=== PATIENT | male | born 1945 | race African-American/Black ===

== ENCOUNTER 2017-09-18 13:15 | Emergency (ER) | payer OTHER ==
[~2017-09-18] VITALS: Ht 167.6 cm; Wt 78.5 kg
[~2017-09-18 13:15] MED LIST: AML5T PO; ASPI-231; ATOR40TA52 PO; CAR125T; CAR125T PO; CLON0.1T; CLON0.1T PO; FURO40TA4; FURO40TA4 PO; GABA-494 PO; GLIP-115 PO; HYDR10TA26 PO; METF-370 PO; METF-372; OMEP20CA74 OR; OXYB10TA13; POTA-167; POTA20TA53 PO; QUET300T14; QUET300T23 PO; RAMI10CA38; SIMV10TA84
[2017-09-18 13:28] VITALS: BP 154/64
[2017-09-18 14:13] LABS: Basophils # (auto) 0 uL; Basophils % (auto) 0.5 % (0.0-2.0); Eosinophils # (auto) 0 uL; Eosinophils % (auto) 0.3 % (0.0-7.0); Hematocrit 33.6 % (41.0-53.0); Hemoglobin 10.8 g/dL (13.5-17.5); Lymphocytes # (auto) 0.8 uL; Lymphocytes % (auto) 12.2 % (10.0-50.0); Mean Corpuscular Hemoglobin 27.6 pg (28.0-32.0); Mean Corpuscular Hgb Conc. 32.1 g/dL (32.0-36.0); Mean Corpuscular Volume 85.9 fL (80.0-100.0); Mean Platelet Volume 7.4 fL (6.9-10.8); Monocytes # (auto) 0.6 uL; Monocytes % (auto) 8.4 % (0.0-12.0); Neutrophils # (auto) 5.4 uL; Neutrophils % (auto) 78.6 % (37.0-80.0); Platelet Count (auto) 277 10^3/uL (140-450); Red Cell Distribution Width 16.2 % (11.8-14.3); White Blood Cell 6.8 10^3/uL (4.4-10.8)
[2017-09-18 15:06] LABS: Albumin 3.7 g/dL (3.4-5.0); Alkaline Phosphatase 111 U/L (45-117); Anion Gap 11 (5-15); Aspartate Aminotransferase 35 U/L (15-37); BUN/Creatinine Ratio 20.1; Bilirubin, Total 0.3 mg/dL (0.2-1.0); Blood Urea Nitrogen 42 mg/dL (7-18); Calcium 8.1 mg/dL (8.5-10.1); Carbon Dioxide 22 mmol/L (21-32); Chloride 106 mmol/L (98-107); GFR African American 40 mL/min; GFR Non-African American 33 mL/min; Glucose 289 mg/dL (74-106); Potassium 5.1 mmol/L (3.5-5.1); Sodium 139 mmol/L (136-145); Total Protein 7.7 g/dL (6.4-8.2)
[2017-09-18 17:30] LABS: Urine Bilirubin Negative (Negative); Urine Blood Negative /uL (Negative); Urine Color Yellow (Yellow); Urine Glucose TRACE mg/dL (Normal); Urine Ketone Negative (Negative); Urine Nitrite Negative (Negative); Urine RBC 1 /hpf (0 - 3); Urine Squamous Epithelial Cell FEW /hpf (<5); Urine Urobilinogen Normal (Negative)
[2017-09-18] MEDS ORDERED: PANTOPRAZOLE 40 MG/10 ML VIAL IV STA (17:48)
[2017-09-18] MEDS ORDERED: SODIUM CHLORIDE 0.9% 1,000 ML IV ONE (17:48)
[2017-09-18] MEDS ORDERED: ONDANSETRON HCL 4 MG/2 ML VIAL IV ONE (18:00)
[2017-09-18] MEDS ORDERED: SODIUM CHLORIDE 0.9% 1,000 ML IV SCH (19:19)
[2017-09-18] MEDS ORDERED: DOCUSATE SOD 100 MG CAP PO PRN (19:30)
[2017-09-18] MEDS ORDERED: DEXTROSE (50%) 50ML SYRG IV PRN (19:30)
[2017-09-18] MEDS ORDERED: MORPHINE SULF INJ 2 MG/ML SYRINGE 1ML IV PRN ×2 (19:30)
[2017-09-18] MEDS ORDERED: ONDANSETRON HCL 4 MG/2 ML VIAL IV PRN (19:30)
[2017-09-18] MEDS ORDERED: HYDROcodone-ACET 5/325MG TAB PO PRN (19:30)
[2017-09-18] MEDS ORDERED: METOCLOPRAMIDE HCL 5MG/ml INJ 2ml VIAL IV PRN (19:30)
[2017-09-18] MEDS ORDERED: ACETAMINOPHEN 325 MG TAB PO PRN (19:30)
[2017-09-18] MEDS ORDERED: NITROGLYCERIN 0.4 MG SL TAB SL PRN (19:30)
[2017-09-18] MEDS ORDERED: ONDA4TAB8 SL ×2 (19:37→19:39)
[2017-09-18 19:49] LABS: Magnesium 2.4 mg/dL (1.6-2.6)
[2017-09-18] MEDS ORDERED: metFORMIN HYDROCHLORIDE 500 MG TAB PO SCH (20:00)
[2017-09-18] MEDS ORDERED: CARVEDILOL 12.5 MG TAB PO SCH (22:00)
[2017-09-18] MEDS ORDERED: ACCU-CHEK COMFORT CURVE STRIP VI SCH (22:00)
[2017-09-18] MEDS ORDERED: QUEtiapine FUMARATE 100 MG TAB PO ONE (22:00)
[2017-09-18] MEDS ORDERED: InsuLIN REG 1unit/0.01ml Soln (100units/ml) SC SCH (22:00)
[2017-09-18] MEDS ORDERED: GABAPENTIN 100 MG CAP PO SCH (22:00)
[2017-09-19] MEDS ORDERED: InsuLIN REG 1unit/0.01ml Soln (100units/ml) SC SCH (07:00)
== END 2017-09-18 19:46 | disposition home or self-care (01) ==
LOC: ER 13:15
DX: E11.65 Type 2 diabetes mellitus with hyperglycemia (principal); E11.22 Type 2 diabetes mellitus with diabetic chronic kidney disease; I12.9 Hypertensive chronic kidney disease with stage 1 through stage 4 chronic kidney disease, or unspecified chronic kidney disease; N18.3 Chronic kidney disease, stage 3 (moderate); R42 Dizziness and giddiness; I25.2 Old myocardial infarction; Z86.73 Personal history of transient ischemic attack (TIA), and cerebral infarction without residual deficits; Z79.82 Long term (current) use of aspirin; Z85.46 Personal history of malignant neoplasm of prostate
CPT/HCPCS: 36415; 71020; 74176; 80053; 81001; 83690; 83735; 84484; 85025; 93005; 94761

== ENCOUNTER 2017-09-23 11:28 | Inpatient (IN) | payer OTHER ==
[~2017-09-23] VITALS: Ht 170.2 cm; Wt 79.2 kg
[~2017-09-23 11:28] MED LIST changes: +[UNRECOGNIZED DRUG - CODE] SL
[2017-09-23 12:14] LABS: Basophils # (auto) 0 uL; Basophils % (auto) 0.7 % (0.0-2.0); Eosinophils # (auto) 0.1 uL; Eosinophils % (auto) 1.7 % (0.0-7.0); Hematocrit 30.4 % (41.0-53.0); Hemoglobin 9.7 g/dL (13.5-17.5); Lymphocytes # (auto) 1.4 uL; Lymphocytes % (auto) 23.6 % (10.0-50.0); Mean Corpuscular Hemoglobin 27.2 pg (28.0-32.0); Mean Corpuscular Hgb Conc. 31.9 g/dL (32.0-36.0); Mean Corpuscular Volume 85.4 fL (80.0-100.0); Mean Platelet Volume 7.3 fL (6.9-10.8); Monocytes # (auto) 0.7 uL; Monocytes % (auto) 12.8 % (0.0-12.0); Neutrophils # (auto) 3.6 uL; Neutrophils % (auto) 61.2 % (37.0-80.0); Nucleated Red Blood Cells % 0.2 %; Platelet Count (auto) 247 10^3/uL (140-450); Red Cell Distribution Width 16.4 % (11.8-14.3); White Blood Cell 5.8 10^3/uL (4.4-10.8)
[2017-09-23 12:46] LABS: Albumin 3.4 g/dL (3.4-5.0); BUN/Creatinine Ratio 15.6; Bilirubin, Total 0.6 mg/dL (0.2-1.0); Calcium 8.1 mg/dL (8.5-10.1); Magnesium 2.7 mg/dL (1.6-2.6); Potassium 4.6 mmol/L (3.5-5.1)
[2017-09-23] MEDS ORDERED: DEXTROSE (50%) 50ML SYRG IV ONE ×2 (15:45→17:30)
[2017-09-23] MEDS ORDERED: DEXTROSE 50% SYRINGE 50 ML IV ONE (17:14)
[2017-09-23] MEDS: SODIUM CHLORIDE 0.9% 1,000 ML IV SCH ×2 (18:49→20:26)
[2017-09-23] MEDS ORDERED: PROMETHAZINE HCL 25 MG/ML 1ML IV PRN (19:00)
[2017-09-23] MEDS ORDERED: TEMAZEPAM 15 MG CAP PO PRN (19:00)
[2017-09-23] MEDS ORDERED: MORPHINE SULF INJ 2 MG/ML SYRINGE 1ML IV PRN ×2 (19:00)
[2017-09-23] MEDS ORDERED: NITROGLYCERIN 0.4 MG SL TAB SL PRN (19:00)
[2017-09-23] MEDS ORDERED: LORazepam 0.5 MG TAB PO PRN (19:00)
[2017-09-23] MEDS ORDERED: LACTULOSE 20Gm/30ML SOLN PO PRN (19:00)
[2017-09-23] MEDS ORDERED: ACETAMINOPHEN 500 MG TAB PO PRN (19:00)
[2017-09-23] MEDS ORDERED: DEXTROSE (50%) 50ML SYRG IV PRN (19:00)
[2017-09-23 20:24] LABS: Temperature: 21.9 C (20.0-25.0)
[2017-09-23] MEDS ORDERED: LORazepam 2MG/ML-1ML VIAL IV PRN (21:00)
[2017-09-23 21:20] VITALS: BP 151/84
[2017-09-23 21:55] VITALS: BP 151/84
[2017-09-23] MEDS: cloNIDine HCL 0.1 MG TAB PO SCH (22:00)
[2017-09-23] MEDS: ACCU-CHEK COMFORT CURVE STRIP VI SCH (22:00)
[2017-09-23] MEDS: CARVEDILOL 12.5 MG TAB PO SCH (22:39)
[2017-09-23] MEDS: hydrALAZINE HCL 10 MG TAB PO SCH (22:40)
[2017-09-23] MEDS: InsuLIN REG 1unit/0.01ml Soln (100units/ml) SC SCH (22:41)
[2017-09-23] MEDS: HYDROcodone-ACET 5/325MG TAB PO PRN (22:46)
[2017-09-23] MEDS: QUEtiapine FUMARATE 100 MG TAB PO SCH (22:47)
[2017-09-24 05:39] VITALS: BP 115/59
[2017-09-24] MEDS: hydrALAZINE HCL 10 MG TAB PO SCH ×4 (06:00→22:00)
[2017-09-24] MEDS: cloNIDine HCL 0.1 MG TAB PO SCH ×3 (06:00→22:00)
[2017-09-24 06:20] LABS: Basophils # (auto) 0 uL; Basophils % (auto) 0.5 % (0.0-2.0); Eosinophils # (auto) 0.1 uL; Eosinophils % (auto) 1.8 % (0.0-7.0); Hematocrit 27.6 % (41.0-53.0); Hemoglobin 8.9 g/dL (13.5-17.5); Lymphocytes # (auto) 1.6 uL; Lymphocytes % (auto) 27.9 % (10.0-50.0); Mean Corpuscular Hemoglobin 27.7 pg (28.0-32.0); Mean Corpuscular Hgb Conc. 32.4 g/dL (32.0-36.0); Mean Corpuscular Volume 85.7 fL (80.0-100.0); Monocytes # (auto) 0.7 uL; Monocytes % (auto) 12.2 % (0.0-12.0); Neutrophils # (auto) 3.3 uL; Neutrophils % (auto) 57.6 % (37.0-80.0); Platelet Count (auto) 215 10^3/uL (140-450); White Blood Cell 5.7 10^3/uL (4.4-10.8)
[2017-09-24 06:44] LABS: Albumin 2.8 g/dL (3.4-5.0); BUN/Creatinine Ratio 17.6; Bilirubin, Total 0.2 mg/dL (0.2-1.0); Calcium 7.9 mg/dL (8.5-10.1); Potassium 4.4 mmol/L (3.5-5.1); Total Protein 5.9 g/dL (6.4-8.2)
[2017-09-24] MEDS: InsuLIN REG 1unit/0.01ml Soln (100units/ml) SC SCH ×4 (06:45→22:00)
[2017-09-24] MEDS: ACCU-CHEK COMFORT CURVE STRIP VI SCH ×4 (06:45→22:25)
[2017-09-24] MEDS ORDERED: CYANOCOBALAMIN (B-12) 1000 MCG/1 ML VIAL IM ONE (08:30)
[2017-09-24 09:00] VITALS: BP 142/70
[2017-09-24] MEDS: SODIUM CHLORIDE 0.9% 1,000 ML IV SCH ×2 (09:00→19:49)
[2017-09-24] MEDS: HYDROcodone-ACET 5/325MG TAB PO PRN ×2 (09:14→20:01)
[2017-09-24] MEDS ORDERED: ENOXAPARIN SOD 30 MG/0.3 ML SYRINGE SC SCH (10:00)
[2017-09-24] MEDS: ASPirin 81 mg TAB PO SCH (10:12)
[2017-09-24] MEDS: CARVEDILOL 12.5 MG TAB PO SCH ×2 (10:13→22:25)
[2017-09-24] MEDS: amLODIPine BESYLATE 5 MG TAB PO SCH (10:14)
[2017-09-24] MEDS: FUROSEMIDE 40 MG TAB PO SCH (10:14)
[2017-09-24] MEDS: PANTOPRAZOLE 40 MG TAB PO SCH (10:14)
[2017-09-24] MEDS: ENALAPRIL MALEATE 2.5 MG TAB PO SCH (10:14)
[2017-09-24] MEDS ORDERED: GADOPENTETATE DIMEGLUMINE (10MMOL/20 ML) VIAL IV ONE (11:13)
[2017-09-24 13:00] VITALS: BP 125/63
[2017-09-24] MEDS: CLINDAMYCIN 600MG IV 50 ML IV SCH ×2 (15:35→22:24)
[2017-09-24 17:00] VITALS: BP 113/52
[2017-09-24 22:00] VITALS: BP 106/56
[2017-09-24] MEDS: QUEtiapine FUMARATE 100 MG TAB PO SCH (22:25)
[2017-09-24] MEDS: ATORVASTATIN 20 MG TAB PO SCH (22:25)
[2017-09-25 04:22] LABS: Urine Bilirubin Negative (Negative); Urine Blood Negative /uL (Negative); Urine Color Yellow (Yellow); Urine Glucose Normal (Normal); Urine Ketone Negative (Negative); Urine Nitrite Negative (Negative); Urine RBC <1 /hpf (0 - 3); Urine Squamous Epithelial Cell FEW /hpf (<5); Urine Urobilinogen Normal (Negative)
[2017-09-25 05:00] VITALS: BP 121/50
[2017-09-25] MEDS: hydrALAZINE HCL 10 MG TAB PO SCH ×4 (06:00→21:58)
[2017-09-25] MEDS: cloNIDine HCL 0.1 MG TAB PO SCH ×3 (06:00→21:59)
[2017-09-25] MEDS: HYDROcodone-ACET 5/325MG TAB PO PRN (06:00)
[2017-09-25 06:10] LABS: Basophils # (auto) 0.1 uL; Basophils % (auto) 0.8 % (0.0-2.0); Eosinophils # (auto) 0.1 uL; Eosinophils % (auto) 2.1 % (0.0-7.0); Hematocrit 26.5 % (41.0-53.0); Hemoglobin 8.6 g/dL (13.5-17.5); Lymphocytes # (auto) 1.8 uL; Lymphocytes % (auto) 25.2 % (10.0-50.0); Mean Corpuscular Hemoglobin 27.7 pg (28.0-32.0); Mean Corpuscular Hgb Conc. 32.5 g/dL (32.0-36.0); Mean Corpuscular Volume 85.2 fL (80.0-100.0); Mean Platelet Volume 7.5 fL (6.9-10.8); Monocytes # (auto) 0.8 uL; Monocytes % (auto) 11.3 % (0.0-12.0); Neutrophils # (auto) 4.3 uL; Neutrophils % (auto) 60.6 % (37.0-80.0); Platelet Count (auto) 209 10^3/uL (140-450); Red Cell Distribution Width 16.4 % (11.8-14.3); White Blood Cell 7.1 10^3/uL (4.4-10.8)
[2017-09-25 06:26] LABS: Prothrombin Time 10.9 sec (9.37-12.3)
[2017-09-25] MEDS: CLINDAMYCIN 600MG IV 50 ML IV SCH ×3 (06:26→21:56)
[2017-09-25] MEDS: ACCU-CHEK COMFORT CURVE STRIP VI SCH ×4 (06:56→21:59)
[2017-09-25] MEDS: InsuLIN REG 1unit/0.01ml Soln (100units/ml) SC SCH ×4 (06:56→22:00)
[2017-09-25 08:00] VITALS: BP 133/68
[2017-09-25] MEDS: SODIUM CHLORIDE 0.9% 1,000 ML IV SCH (08:19)
[2017-09-25 09:00] VITALS: BP 133/68
[2017-09-25] MEDS: cefTRIAXone 1GM/10ml IVPUSH 10 ML IV SCH (09:00)
[2017-09-25] MEDS ORDERED: VANCOMYCIN 1GM/250ML 250 ML IV ONE (09:15)
[2017-09-25] MEDS ORDERED: VANCOMYCIN HCL 1000 MG VL IR ONE (09:15)
[2017-09-25] MEDS ORDERED: LIDOCAINE 2%HCL (LOCAL ANESTH.) INJ 20ML MDV ONE (09:15)
[2017-09-25] MEDS: FUROSEMIDE 40 MG TAB PO SCH (10:00)
[2017-09-25] MEDS: CYANOCOBALAMIN 500 MCG TAB PO SCH (10:00)
[2017-09-25] MEDS: CARVEDILOL 12.5 MG TAB PO SCH ×2 (10:00→21:58)
[2017-09-25] MEDS: ENOXAPARIN SOD 30 MG/0.3 ML SYRINGE SC SCH (10:00)
[2017-09-25] MEDS: ENALAPRIL MALEATE 2.5 MG TAB PO SCH (10:00)
[2017-09-25] MEDS: ASPirin 81 mg TAB PO SCH (10:00)
[2017-09-25] MEDS: amLODIPine BESYLATE 5 MG TAB PO SCH (10:00)
[2017-09-25] MEDS ORDERED: fentaNYL CITRATE 100 MCG/2 ML VL ONE (10:00)
[2017-09-25] MEDS: PANTOPRAZOLE 40 MG TAB PO SCH (10:00)
[2017-09-25] MEDS ORDERED: ENOXAPARIN SOD 40 MG/0.4 ML SYRINGE SC SCH (10:00)
[2017-09-25] MEDS ORDERED: MIDAZOLAM HCL 1MG/1ML-2 ML VIAL ONE ×2 (10:01→10:20)
[2017-09-25] MEDS ORDERED: FUROSEMIDE 20 MG/2 ML VIAL ONE (11:24)
[2017-09-25] MEDS ORDERED: NITROGLYCERIN 0.4 MG SL TAB SL PRN (11:30)
[2017-09-25] MEDS ORDERED: HYDROcodone-ACET 5/325MG TAB PO PRN (11:30)
[2017-09-25] MEDS ORDERED: MORPHINE SULFATE 4 MG/ML SYRG IV PRN ×3 (11:30→11:45)
[2017-09-25] MEDS ORDERED: ACETAMINOPHEN 325 MG TAB PO PRN (11:30)
[2017-09-25 13:00] VITALS: BP 131/63
[2017-09-25 17:00] VITALS: BP 150/72
[2017-09-25] MEDS: ATORVASTATIN 20 MG TAB PO SCH (21:57)
[2017-09-25] MEDS: QUEtiapine FUMARATE 100 MG TAB PO SCH (21:57)
[2017-09-25 22:00] VITALS: BP 123/76
[2017-09-26 05:00] VITALS: BP 114/65
[2017-09-26] MEDS: CLINDAMYCIN 600MG IV 50 ML IV SCH ×2 (05:50→15:37)
[2017-09-26] MEDS: hydrALAZINE HCL 10 MG TAB PO SCH ×3 (05:50→18:29)
[2017-09-26] MEDS: cloNIDine HCL 0.1 MG TAB PO SCH ×2 (05:51→14:00)
[2017-09-26 05:58] LABS: Basophils # (auto) 0 uL; Basophils % (auto) 0.2 % (0.0-2.0); Eosinophils # (auto) 0.2 uL; Eosinophils % (auto) 2.4 % (0.0-7.0); Hematocrit 26.1 % (41.0-53.0); Hemoglobin 8.6 g/dL (13.5-17.5); Lymphocytes # (auto) 1.6 uL; Lymphocytes % (auto) 25.8 % (10.0-50.0); Mean Corpuscular Hemoglobin 28.1 pg (28.0-32.0); Mean Corpuscular Hgb Conc. 32.9 g/dL (32.0-36.0); Mean Corpuscular Volume 85.4 fL (80.0-100.0); Mean Platelet Volume 8.2 fL (6.9-10.8); Monocytes # (auto) 0.6 uL; Monocytes % (auto) 10.3 % (0.0-12.0); Neutrophils # (auto) 3.8 uL; Neutrophils % (auto) 61.3 % (37.0-80.0); Platelet Count (auto) 209 10^3/uL (140-450); Red Cell Distribution Width 15.4 % (11.8-14.3); White Blood Cell 6.3 10^3/uL (4.4-10.8)
[2017-09-26 06:11] LABS: BUN/Creatinine Ratio 21.9; Calcium 8.1 mg/dL (8.5-10.1); Potassium 4.9 mmol/L (3.5-5.1)
[2017-09-26] MEDS: ACCU-CHEK COMFORT CURVE STRIP VI SCH ×3 (06:54→17:40)
[2017-09-26] MEDS: InsuLIN REG 1unit/0.01ml Soln (100units/ml) SC SCH ×3 (06:54→17:00)
[2017-09-26 08:00] VITALS: BP 116/59
[2017-09-26 09:00] VITALS: BP 116/59
[2017-09-26] MEDS: amLODIPine BESYLATE 5 MG TAB PO SCH (10:00)
[2017-09-26] MEDS: ENALAPRIL MALEATE 2.5 MG TAB PO SCH (10:00)
[2017-09-26] MEDS: ASPirin 81 mg TAB PO SCH (10:13)
[2017-09-26] MEDS: CYANOCOBALAMIN 500 MCG TAB PO SCH (10:13)
[2017-09-26] MEDS: FUROSEMIDE 40 MG TAB PO SCH (10:13)
[2017-09-26] MEDS: CARVEDILOL 12.5 MG TAB PO SCH (10:14)
[2017-09-26] MEDS: PANTOPRAZOLE 40 MG TAB PO SCH (10:14)
[2017-09-26] MEDS: ENOXAPARIN SOD 30 MG/0.3 ML SYRINGE SC SCH (10:14)
[2017-09-26] MEDS: HYDROcodone-ACET 5/325MG TAB PO PRN (10:22)
[2017-09-26] MEDS: cefTRIAXone 1GM/10ml IVPUSH 10 ML IV SCH (11:45)
[2017-09-26] MEDS: SODIUM CHLORIDE 0.9% 1,000 ML IV SCH ×2 (11:46→11:47)
[2017-09-26 13:00] VITALS: BP 114/66
[2017-09-26 17:00] VITALS: BP 126/70
[2017-09-26] MEDS ORDERED: HYDR-4683 PO (17:38)
[2017-09-26 17:54] VITALS: BP 114/66
== END 2017-09-26 19:00 | disposition home or self-care (01) | DRG 243 ==
LOC: EDBD 11:28 → EDSEX 11:28 → ER 11:28 → TELE 11:29 → TELE-WESTW 21:10
PROVIDERS: ADMIT Internal Medicine; ATTEND Internal Medicine
PROC: 0JH606Z Insertion of Pacemaker, Dual Chamber into Chest Subcutaneous Tissue and Fascia, Open Approach (ICD-10-PCS; principal; 2017-09-24)
PROC: 02H63JZ Insertion of Pacemaker Lead into Right Atrium, Percutaneous Approach (ICD-10-PCS; 2017-09-24)
PROC: 02HK3JZ Insertion of Pacemaker Lead into Right Ventricle, Percutaneous Approach (ICD-10-PCS; 2017-09-24)
DX: I49.5 Sick sinus syndrome (principal); I45.2 Bifascicular block; N17.9 Acute kidney failure, unspecified; S32.591A Other specified fracture of right pubis, initial encounter for closed fracture; E11.21 Type 2 diabetes mellitus with diabetic nephropathy; E11.649 Type 2 diabetes mellitus with hypoglycemia without coma; F05 Delirium due to known physiological condition; I69.351 Hemiplegia and hemiparesis following cerebral infarction affecting right dominant side; D63.8 Anemia in other chronic diseases classified elsewhere; E53.8 Deficiency of other specified B group vitamins; E78.5 Hyperlipidemia, unspecified; N18.3 Chronic kidney disease, stage 3 (moderate); R32 Unspecified urinary incontinence; I13.10 Hypertensive heart and chronic kidney disease without heart failure, with stage 1 through stage 4 chronic kidney disease, or unspecified chronic kidney disease; I45.10 Unspecified right bundle-branch block; I25.10 Atherosclerotic heart disease of native coronary artery without angina pectoris; I67.2 Cerebral atherosclerosis; M16.0 Bilateral primary osteoarthritis of hip; Z98.84 Bariatric surgery status; Z95.0 Presence of cardiac pacemaker; Z95.1 Presence of aortocoronary bypass graft; Z82.49 Family history of ischemic heart disease and other diseases of the circulatory system; Z83.3 Family history of diabetes mellitus; Z79.82 Long term (current) use of aspirin; Z59.0 Homelessness; Z79.899 Other long term (current) drug therapy; Z88.0 Allergy status to penicillin; W19.XXXA Unspecified fall, initial encounter; Y93.89 Activity, other specified; Y92.89 Other specified places as the place of occurrence of the external cause; Y99.8 Other external cause status
CPT/HCPCS: 33208; 36415; 70450; 70553; 71010; 71020; 72192; 80048; 80053; 80061; 80307; 81001; 82550; 82607; 82746; 82962; 83036; 83735; 84443; 84484; 85025; 85610; 85652; 85730; 86850; 86900; 86901; 87040; 93005; 93306; 93886; 93971; 95819; 96361; 96374; 96376; 99152; 99153; C1785; J1815; J2250; J3490

== ENCOUNTER 2017-09-27 16:40 | Inpatient (IN) | payer OTHER ==
[~2017-09-27] VITALS: Ht 167.6 cm; Wt 78.6 kg
[~2017-09-27 16:40] MED LIST changes: -GABA-494 PO; +GABA100C9 PO; +HYDR-4683 PO; -METF-370 PO; -METF-372; +ONDA-101 SL; -[UNRECOGNIZED DRUG - CODE] SL
[2017-09-27] MEDS ORDERED: SODIUM CHLORIDE 0.9% 1,000 ML IV ONE ×2 (18:10→20:30)
[2017-09-27 19:44] LABS: Basophils # (auto) 0 uL; Basophils % (auto) 0.4 % (0.0-2.0); Eosinophils # (auto) 0.1 uL; Eosinophils % (auto) 0.7 % (0.0-7.0); Hematocrit 33.8 % (41.0-53.0); Hemoglobin 10.7 g/dL (13.5-17.5); Lymphocytes # (auto) 1.3 uL; Lymphocytes % (auto) 15.5 % (10.0-50.0); Mean Corpuscular Hemoglobin 27.3 pg (28.0-32.0); Mean Corpuscular Hgb Conc. 31.7 g/dL (32.0-36.0); Mean Corpuscular Volume 86.1 fL (80.0-100.0); Monocytes # (auto) 0.9 uL; Monocytes % (auto) 10.4 % (0.0-12.0); Neutrophils # (auto) 6.1 uL; Nucleated Red Blood Cells % 0.1 %; Platelet Count (auto) 282 10^3/uL (140-450); Red Blood Cells 3.92 10^6/uL (4.5-5.90); White Blood Cell 8.3 10^3/uL (4.4-10.8)
[2017-09-27 19:59] LABS: INR 0.95 (0.9-1.15); Partial Thromboplastin Time 27.3 sec (22.64-33.71); Prothrombin Time 10.3 sec (9.37-12.3)
[2017-09-27 20:08] LABS: Albumin 3.6 g/dL (3.4-5.0); BUN/Creatinine Ratio 17.7; Bilirubin, Total 0.2 mg/dL (0.2-1.0); Calcium 8.6 mg/dL (8.5-10.1); Magnesium 2.9 mg/dL (1.6-2.6); Potassium 4.2 mmol/L (3.5-5.1); Total Protein 7.8 g/dL (6.4-8.2)
[2017-09-27 21:44] LABS: Urine Bacteria NONE SEEN /hpf (None Seen); Urine Blood Negative /uL (Negative); Urine Specific Gravity 1.014 (1.001-1.035); Urine WBC 3 /hpf (0 - 3)
[2017-09-27] MEDS ORDERED: ACETAMINOPHEN 500 MG TAB PO PRN (23:15)
[2017-09-27] MEDS ORDERED: ONDANSETRON HCL 4 MG/2 ML VIAL IV PRN (23:15)
[2017-09-28 01:15] VITALS: BP 143/73
[2017-09-28] MEDS: HYDROcodone-ACET 5/325MG TAB PO PRN (01:30)
[2017-09-28] MEDS ORDERED: QUEtiapine FUMARATE 100 MG TAB PO ONE (04:30)
[2017-09-28 05:03] VITALS: BP 126/58
[2017-09-28 06:28] LABS: Basophils # (auto) 0 uL; Basophils % (auto) 0.3 % (0.0-2.0); Eosinophils # (auto) 0.1 uL; Eosinophils % (auto) 1.2 % (0.0-7.0); Hematocrit 26.9 % (41.0-53.0); Lymphocytes # (auto) 1.6 uL; Lymphocytes % (auto) 23.6 % (10.0-50.0); Mean Corpuscular Hemoglobin 28.5 pg (28.0-32.0); Mean Corpuscular Hgb Conc. 33.6 g/dL (32.0-36.0); Mean Corpuscular Volume 84.7 fL (80.0-100.0); Monocytes # (auto) 0.8 uL; Monocytes % (auto) 11.9 % (0.0-12.0); Neutrophils # (auto) 4.3 uL; Platelet Count (auto) 234 10^3/uL (140-450); Red Blood Cells 3.18 10^6/uL (4.5-5.90); White Blood Cell 6.8 10^3/uL (4.4-10.8)
[2017-09-28 06:42] LABS: BUN/Creatinine Ratio 20.3; Calcium 7.8 mg/dL (8.5-10.1); Potassium 4.2 mmol/L (3.5-5.1)
[2017-09-28 07:55] VITALS: BP 133/54
[2017-09-28] MEDS: amLODIPine BESYLATE 5 MG TAB PO SCH (10:02)
[2017-09-28] MEDS: POTASSIUM CHL 20 Meq TABLET PO SCH (10:03)
[2017-09-28] MEDS: FUROSEMIDE 20 MG TAB PO SCH (10:03)
[2017-09-28] MEDS: ASPirin-EC 81 mg tab PO SCH (10:03)
[2017-09-28] MEDS: CARVEDILOL 12.5 MG TAB PO SCH ×2 (10:04→21:41)
[2017-09-28 12:05] VITALS: BP 118/52
[2017-09-28] MEDS ORDERED: PANTOPRAZOLE 40 MG/10 ML VIAL IV ONE (14:45)
[2017-09-28] MEDS ORDERED: ENOXAPARIN SOD 80 MG/0.8ML SYRINGE SC ONE (14:45)
[2017-09-28] MEDS ORDERED: ENOXAPARIN SOD 80 MG/0.8ML SYRINGE SC SCH ×3 (15:00→22:00)
[2017-09-28 16:35] VITALS: BP 115/67
[2017-09-28] MEDS: QUEtiapine FUMARATE 100 MG TAB PO SCH (21:39)
[2017-09-28] MEDS: ATORVASTATIN 20 MG TAB PO SCH (21:39)
[2017-09-28 22:00] VITALS: BP 117/59
[2017-09-29 05:00] VITALS: BP 121/85
[2017-09-29 07:45] LABS: Basophils # (auto) 0 uL; Basophils % (auto) 0.6 % (0.0-2.0); Eosinophils # (auto) 0.2 uL; Eosinophils % (auto) 3.2 % (0.0-7.0); Hematocrit 26.9 % (41.0-53.0); Hemoglobin 8.7 g/dL (13.5-17.5); Lymphocytes # (auto) 2.1 uL; Mean Corpuscular Hemoglobin 27.9 pg (28.0-32.0); Mean Corpuscular Hgb Conc. 32.4 g/dL (32.0-36.0); Mean Corpuscular Volume 85.9 fL (80.0-100.0); Monocytes # (auto) 0.7 uL; Monocytes % (auto) 11.7 % (0.0-12.0); Neutrophils # (auto) 3.1 uL; Neutrophils % (auto) 50.5 % (37.0-80.0); Platelet Count (auto) 231 10^3/uL (140-450); Red Blood Cells 3.13 10^6/uL (4.5-5.90); Red Cell Distribution Width 15.6 % (11.8-14.3); White Blood Cell 6.2 10^3/uL (4.4-10.8)
[2017-09-29 07:57] LABS: BUN/Creatinine Ratio 18.3; Calcium 8.1 mg/dL (8.5-10.1); Potassium 4.9 mmol/L (3.5-5.1)
[2017-09-29 08:08] VITALS: BP 113/54
[2017-09-29] MEDS ORDERED: ENOXAPARIN SOD 80 MG/0.8ML SYRINGE SC SCH (10:00)
[2017-09-29] MEDS: POTASSIUM CHL 20 Meq TABLET PO SCH (10:02)
[2017-09-29] MEDS: ASPirin-EC 81 mg tab PO SCH (10:02)
[2017-09-29] MEDS: FUROSEMIDE 20 MG TAB PO SCH (10:02)
[2017-09-29] MEDS: PANTOPRAZOLE 40 MG/10 ML VIAL IV SCH (10:03)
[2017-09-29] MEDS: amLODIPine BESYLATE 5 MG TAB PO SCH (10:03)
[2017-09-29] MEDS: CARVEDILOL 12.5 MG TAB PO SCH ×2 (10:03→22:23)
[2017-09-29 11:43] VITALS: BP 117/57
[2017-09-29] MEDS: traMADol HCL 50 MG TAB PO SCH ×2 (11:59→19:07)
[2017-09-29 16:49] VITALS: BP 126/67
[2017-09-29 22:00] VITALS: BP 147/76
[2017-09-29] MEDS: QUEtiapine FUMARATE 100 MG TAB PO SCH (22:22)
[2017-09-29] MEDS: ATORVASTATIN 20 MG TAB PO SCH (22:23)
[2017-09-30] MEDS: traMADol HCL 50 MG TAB PO SCH ×5 (00:32→23:47)
[2017-09-30 05:00] VITALS: BP 108/65
[2017-09-30] MEDS ORDERED: IOHEXOL 350 MG/ML 100ML IJ ONE (07:41)
[2017-09-30] MEDS ORDERED: LIDOCAINE 2%HCL (LOCAL ANESTH.) INJ 20ML MDV ONE (07:41)
[2017-09-30 09:00] VITALS: BP 120/46
[2017-09-30] MEDS ORDERED: MIDAZOLAM HCL 1MG/1ML-2 ML VIAL ONE (09:17)
[2017-09-30] MEDS ORDERED: fentaNYL CITRATE 100 MCG/2 ML VL ONE (09:17)
[2017-09-30] MEDS: POTASSIUM CHL 20 Meq TABLET PO SCH (10:32)
[2017-09-30] MEDS: PANTOPRAZOLE 40 MG/10 ML VIAL IV SCH (10:32)
[2017-09-30] MEDS: FUROSEMIDE 20 MG TAB PO SCH (10:33)
[2017-09-30] MEDS: CARVEDILOL 12.5 MG TAB PO SCH ×2 (10:34→22:49)
[2017-09-30] MEDS: amLODIPine BESYLATE 5 MG TAB PO SCH (10:35)
[2017-09-30 13:00] VITALS: BP 139/68
[2017-09-30 17:00] VITALS: BP 160/79
[2017-09-30] MEDS: HYDROcodone-ACET 5/325MG TAB PO PRN (19:52)
[2017-09-30] MEDS: ATORVASTATIN 20 MG TAB PO SCH (22:48)
[2017-09-30] MEDS: QUEtiapine FUMARATE 100 MG TAB PO SCH (22:48)
[2017-09-30 23:53] VITALS: BP 113/98
[2017-10-01 05:30] VITALS: BP 140/65
[2017-10-01] MEDS: traMADol HCL 50 MG TAB PO SCH ×4 (05:59→23:51)
[2017-10-01 09:00] VITALS: BP 146/84
[2017-10-01] MEDS: POTASSIUM CHL 20 Meq TABLET PO SCH (09:53)
[2017-10-01] MEDS: PANTOPRAZOLE 40 MG/10 ML VIAL IV SCH ×2 (09:53→09:57)
[2017-10-01] MEDS: CARVEDILOL 12.5 MG TAB PO SCH ×2 (09:53→21:50)
[2017-10-01] MEDS: FUROSEMIDE 20 MG TAB PO SCH (09:53)
[2017-10-01] MEDS: amLODIPine BESYLATE 5 MG TAB PO SCH (09:54)
[2017-10-01] MEDS: HYDROcodone-ACET 5/325MG TAB PO PRN (10:27)
[2017-10-01 13:00] VITALS: BP 146/84
[2017-10-01 17:00] VITALS: BP 161/74
[2017-10-01] MEDS: ATORVASTATIN 20 MG TAB PO SCH (21:49)
[2017-10-01] MEDS: QUEtiapine FUMARATE 100 MG TAB PO SCH (21:49)
[2017-10-01 22:00] VITALS: BP 160/76
[2017-10-02 05:00] VITALS: BP 140/74
[2017-10-02] MEDS: traMADol HCL 50 MG TAB PO SCH ×4 (06:29→23:23)
[2017-10-02 08:00] VITALS: BP 147/90
[2017-10-02] MEDS: PANTOPRAZOLE 40 MG/10 ML VIAL IV SCH (09:28)
[2017-10-02] MEDS: CARVEDILOL 12.5 MG TAB PO SCH ×2 (09:28→21:58)
[2017-10-02] MEDS: POTASSIUM CHL 20 Meq TABLET PO SCH (09:29)
[2017-10-02] MEDS: amLODIPine BESYLATE 5 MG TAB PO SCH (09:29)
[2017-10-02] MEDS: FUROSEMIDE 20 MG TAB PO SCH (09:30)
[2017-10-02 12:00] VITALS: BP 151/80
[2017-10-02 17:09] VITALS: BP 140/76
[2017-10-02] MEDS: ATORVASTATIN 20 MG TAB PO SCH (21:56)
[2017-10-02] MEDS: QUEtiapine FUMARATE 100 MG TAB PO SCH (21:56)
[2017-10-02 22:00] VITALS: BP 148/77
[2017-10-03] MEDS ORDERED: diphenhdrAMINE HCL 50 MG/1 ML VL IV ONE (02:15)
[2017-10-03 05:00] VITALS: BP 142/75
[2017-10-03] MEDS: traMADol HCL 50 MG TAB PO SCH (05:31)
[2017-10-03 07:15] VITALS: BP 111/52
[2017-10-03 09:00] VITALS: BP 139/60
[2017-10-03] MEDS: PANTOPRAZOLE 40 MG/10 ML VIAL IV SCH (10:21)
[2017-10-03] MEDS: POTASSIUM CHL 20 Meq TABLET PO SCH (10:21)
[2017-10-03] MEDS: FUROSEMIDE 20 MG TAB PO SCH (10:21)
[2017-10-03] MEDS: CARVEDILOL 12.5 MG TAB PO SCH (10:22)
[2017-10-03] MEDS: amLODIPine BESYLATE 5 MG TAB PO SCH (10:22)
== END 2017-10-03 11:00 | disposition home or self-care (01) | DRG 907 ==
LOC: ER 16:40 → TELE 16:41 → TELE-WESTW 09-28 01:00
PROVIDERS: ADMIT Nurse Practitioner Family; ATTEND Family Medicine
PROC: 06H03DZ Insertion of Intraluminal Device into Inferior Vena Cava, Percutaneous Approach (ICD-10-PCS; principal; 2017-10-02)
PROC: B5191ZZ Fluoroscopy of Inferior Vena Cava using Low Osmolar Contrast (ICD-10-PCS; 2017-10-02)
DX: L76.32 Postprocedural hematoma of skin and subcutaneous tissue following other procedure (principal); N17.0 Acute kidney failure with tubular necrosis; I82.411 Acute embolism and thrombosis of right femoral vein; E11.22 Type 2 diabetes mellitus with diabetic chronic kidney disease; D64.9 Anemia, unspecified; N18.3 Chronic kidney disease, stage 3 (moderate); E78.5 Hyperlipidemia, unspecified; Y83.1 Surgical operation with implant of artificial internal device as the cause of abnormal reaction of the patient, or of later complication, without mention of misadventure at the time of the procedure; I44.30 Unspecified atrioventricular block; I25.10 Atherosclerotic heart disease of native coronary artery without angina pectoris; I12.9 Hypertensive chronic kidney disease with stage 1 through stage 4 chronic kidney disease, or unspecified chronic kidney disease; Z95.0 Presence of cardiac pacemaker; Z86.73 Personal history of transient ischemic attack (TIA), and cerebral infarction without residual deficits; Z79.84 Long term (current) use of oral hypoglycemic drugs; Z79.899 Other long term (current) drug therapy; Z82.49 Family history of ischemic heart disease and other diseases of the circulatory system; Z83.3 Family history of diabetes mellitus; Z98.84 Bariatric surgery status; Z95.1 Presence of aortocoronary bypass graft; I25.2 Old myocardial infarction
CPT/HCPCS: 36415; 37191; 37619; 71010; 76937; 80048; 80053; 81001; 82962; 83735; 83880; 84443; 84484; 85025; 85379; 85610; 85730; 87081; 93005; 93970; 94761; 96361; 96374; 99152; C9113; J2250

== ENCOUNTER 2017-10-06 11:59 | Inpatient (IN) | payer MEDICARE, OTHER ==
[~2017-10-06] VITALS: Ht 167.6 cm; Wt 77.8 kg
[2017-10-06] MEDS ORDERED: SODIUM CHLORIDE 0.9% 1,000 ML IV ONE (12:28)
[2017-10-06] MEDS ORDERED: LORazepam 2MG/ML-1ML VIAL IV ONE (12:30)
[2017-10-06 13:15] LABS: Basophils # (auto) 0.1 uL; Basophils % (auto) 0.5 % (0.0-2.0); Eosinophils # (auto) 0.2 uL; Eosinophils % (auto) 2.4 % (0.0-7.0); Hematocrit 31.2 % (41.0-53.0); Lymphocytes # (auto) 0.8 uL; Lymphocytes % (auto) 8.8 % (10.0-50.0); Mean Corpuscular Hemoglobin 27.5 pg (28.0-32.0); Mean Corpuscular Hgb Conc. 31.9 g/dL (32.0-36.0); Mean Corpuscular Volume 86.3 fL (80.0-100.0); Monocytes # (auto) 0.9 uL; Monocytes % (auto) 9.4 % (0.0-12.0); Neutrophils # (auto) 7.4 uL; Neutrophils % (auto) 78.9 % (37.0-80.0); Platelet Count (auto) 289 10^3/uL (140-450); Red Blood Cells 3.62 10^6/uL (4.5-5.90); White Blood Cell 9.4 10^3/uL (4.4-10.8)
[2017-10-06 13:37] LABS: Albumin 3.4 g/dL (3.4-5.0); BUN/Creatinine Ratio 18.9; Calcium 7.9 mg/dL (8.5-10.1); Magnesium 3.1 mg/dL (1.6-2.6); Potassium 5.3 mmol/L (3.5-5.1)
[2017-10-06 13:39] LABS: Bilirubin, Total 0.1 mg/dL (0.2-1.0); Total Protein 7.3 g/dL (6.4-8.2)
[2017-10-06 14:03] LABS: INR 1.04 (0.9-1.15); Prothrombin Time 11.3 sec (9.37-12.3)
[2017-10-06] MEDS ORDERED: LORazepam 2MG/ML-1ML VIAL IV PRN (18:30)
[2017-10-06] MEDS ORDERED: NITROGLYCERIN 0.4 MG SL TAB SL PRN (18:30)
[2017-10-06] MEDS ORDERED: DEXTROSE (50%) 50ML SYRG IV PRN (18:30)
[2017-10-06] MEDS ORDERED: MORPHINE SULFATE 4 MG/ML SYR/VIAL IV PRN (18:30)
[2017-10-06] MEDS ORDERED: HYDROcodone-ACET 5/325MG TAB PO PRN (18:30)
[2017-10-06] MEDS ORDERED: SODIUM POLYSTYRENE SULF 15GM/60ML SUSP PO ONE (18:45)
[2017-10-06] MEDS ORDERED: SODIUM BICARBONATE 8.4% INJ 50ML SYRINGE IV ONE (18:45)
[2017-10-06] MEDS ORDERED: InsuLIN REG 1unit/0.01ml Soln (100units/ml) IV ONE (18:45)
[2017-10-06] MEDS ORDERED: DEXTROSE (50%) 50ML SYRG IV ONE (18:45)
[2017-10-06] MEDS ORDERED: CALCIUM GLUC 4.65meq/50ml D5AE 50 ML IV ONE (18:45)
[2017-10-07] MEDS: FUROSEMIDE 40 MG TAB PO SCH ×3 (00:42→18:01)
[2017-10-07] MEDS: METOPROLOL TARTRATE 25 MG TAB PO SCH ×3 (00:43→23:02)
[2017-10-07] MEDS: ENOXAPARIN SOD 30 MG/0.3 ML SYRINGE SC SCH ×2 (00:43→18:01)
[2017-10-07] MEDS: SODIUM CHLOR 0.9% PF (SALINE LOCK) 10ML VIAL IV SCH ×4 (00:43→22:00)
[2017-10-07] MEDS: ATORVASTATIN 20 MG TAB PO SCH ×2 (00:44→23:01)
[2017-10-07] MEDS: GABAPENTIN 100 MG CAP PO SCH ×4 (00:44→23:02)
[2017-10-07] MEDS: QUEtiapine FUMARATE 100 MG TAB PO SCH ×2 (00:44→23:01)
[2017-10-07] MEDS: ACCU-CHEK COMFORT CURVE STRIP VI SCH ×5 (01:01→23:16)
[2017-10-07] MEDS: InsuLIN REG 1unit/0.01ml Soln (100units/ml) SC SCH ×5 (01:02→23:16)
[2017-10-07 06:12] LABS: Basophils # (auto) 0.1 uL; Basophils % (auto) 0.7 % (0.0-2.0); Eosinophils # (auto) 0.1 uL; Eosinophils % (auto) 1.2 % (0.0-7.0); Hematocrit 27.5 % (41.0-53.0); Hemoglobin 9.3 g/dL (13.5-17.5); Lymphocytes # (auto) 1.2 uL; Lymphocytes % (auto) 13.6 % (10.0-50.0); Mean Corpuscular Hemoglobin 28.6 pg (28.0-32.0); Mean Corpuscular Hgb Conc. 33.9 g/dL (32.0-36.0); Mean Corpuscular Volume 84.3 fL (80.0-100.0); Monocytes # (auto) 0.9 uL; Monocytes % (auto) 10.1 % (0.0-12.0); Neutrophils # (auto) 6.9 uL; Neutrophils % (auto) 74.4 % (37.0-80.0); Nucleated Red Blood Cells % 0.1 %; Platelet Count (auto) 262 10^3/uL (140-450); Red Blood Cells 3.26 10^6/uL (4.5-5.90); Red Cell Distribution Width 15.8 % (11.8-14.3); White Blood Cell 9.2 10^3/uL (4.4-10.8)
[2017-10-07 07:01] LABS: Albumin 3.1 g/dL (3.4-5.0); BUN/Creatinine Ratio 18.3; Bilirubin, Total 0.2 mg/dL (0.2-1.0); Calcium 8.1 mg/dL (8.5-10.1); Potassium 5.1 mmol/L (3.5-5.1); Total Protein 6.6 g/dL (6.4-8.2)
[2017-10-07 09:45] LABS: Basophils # (auto) 0.1 uL; Basophils % (auto) 0.7 % (0.0-2.0); Eosinophils # (auto) 0.1 uL; Eosinophils % (auto) 1.5 % (0.0-7.0); Hematocrit 28.8 % (41.0-53.0); Hemoglobin 9.4 g/dL (13.5-17.5); Lymphocytes # (auto) 1.9 uL; Lymphocytes % (auto) 21.3 % (10.0-50.0); Mean Corpuscular Hemoglobin 27.9 pg (28.0-32.0); Mean Corpuscular Hgb Conc. 32.7 g/dL (32.0-36.0); Mean Corpuscular Volume 85.1 fL (80.0-100.0); Monocytes # (auto) 0.9 uL; Monocytes % (auto) 9.5 % (0.0-12.0); Platelet Count (auto) 272 10^3/uL (140-450); Red Blood Cells 3.38 10^6/uL (4.5-5.90); Red Cell Distribution Width 15.9 % (11.8-14.3); White Blood Cell 8.9 10^3/uL (4.4-10.8)
[2017-10-07] MEDS ORDERED: ENALAPRIL MALEATE 10 MG TAB PO SCH (10:00)
[2017-10-07 10:07] LABS: % Iron Saturation 8.3 % (20-55)
[2017-10-07 10:33] LABS: BUN/Creatinine Ratio 19.3; Calcium 8.2 mg/dL (8.5-10.1); Phosphorus 5.6 mg/dL (2.5-4.90)
[2017-10-07] MEDS: SODIUM BICARBONATE 650 MG TAB PO SCH ×2 (11:02→23:02)
[2017-10-07] MEDS: ASPirin 81 mg TAB PO SCH (11:02)
[2017-10-07 13:31] VITALS: BP 124/67
[2017-10-07 14:17] VITALS: BP 124/67
[2017-10-07 16:56] VITALS: BP 126/77
[2017-10-07] MEDS: CYANOCOBALAMIN 500 MCG TAB PO SCH (18:01)
[2017-10-08 05:13] VITALS: BP 97/55
[2017-10-08] MEDS: InsuLIN REG 1unit/0.01ml Soln (100units/ml) SC SCH ×4 (06:00→18:00)
[2017-10-08] MEDS: ACCU-CHEK COMFORT CURVE STRIP VI SCH ×3 (06:00→18:39)
[2017-10-08] MEDS: FUROSEMIDE 40 MG TAB PO SCH ×2 (06:00→18:38)
[2017-10-08] MEDS: SODIUM CHLOR 0.9% PF (SALINE LOCK) 10ML VIAL IV SCH ×3 (06:00→22:31)
[2017-10-08 06:01] LABS: Basophils # (auto) 0.1 uL; Basophils % (auto) 0.8 % (0.0-2.0); Eosinophils # (auto) 0.2 uL; Eosinophils % (auto) 3.3 % (0.0-7.0); Hematocrit 27.1 % (41.0-53.0); Hemoglobin 8.9 g/dL (13.5-17.5); Lymphocytes # (auto) 2.2 uL; Lymphocytes % (auto) 30.1 % (10.0-50.0); Mean Corpuscular Hemoglobin 27.7 pg (28.0-32.0); Mean Corpuscular Hgb Conc. 32.7 g/dL (32.0-36.0); Mean Corpuscular Volume 84.9 fL (80.0-100.0); Monocytes # (auto) 0.8 uL; Monocytes % (auto) 11.6 % (0.0-12.0); Neutrophils # (auto) 3.9 uL; Neutrophils % (auto) 54.2 % (37.0-80.0); Nucleated Red Blood Cells % 0.1 %; Platelet Count (auto) 260 10^3/uL (140-450); Red Blood Cells 3.19 10^6/uL (4.5-5.90); Red Cell Distribution Width 15.8 % (11.8-14.3); White Blood Cell 7.2 10^3/uL (4.4-10.8)
[2017-10-08 06:20] LABS: Albumin 2.9 g/dL (3.4-5.0); Calcium 7.8 mg/dL (8.5-10.1); Potassium 4.5 mmol/L (3.5-5.1)
[2017-10-08 06:23] LABS: Bilirubin, Total 0.2 mg/dL (0.2-1.0); Total Protein 6.2 g/dL (6.4-8.2)
[2017-10-08] MEDS: GABAPENTIN 100 MG CAP PO SCH ×3 (06:46→22:23)
[2017-10-08 08:33] VITALS: BP 100/58
[2017-10-08] MEDS: ASPirin 81 mg TAB PO SCH (09:47)
[2017-10-08] MEDS: SODIUM BICARBONATE 650 MG TAB PO SCH ×2 (09:47→22:16)
[2017-10-08] MEDS: CYANOCOBALAMIN 500 MCG TAB PO SCH (09:47)
[2017-10-08] MEDS: METOPROLOL TARTRATE 25 MG TAB PO SCH ×3 (09:47→23:17)
[2017-10-08 12:36] VITALS: BP 111/60
[2017-10-08 16:51] LABS: Urine Bacteria NONE SEEN /hpf (None Seen); Urine Blood Negative /uL (Negative); Urine Specific Gravity 1.013 (1.001-1.035); Urine WBC 1 /hpf (0 - 3)
[2017-10-08 16:52] VITALS: BP 122/64
[2017-10-08] MEDS: SEVELAMER 800 MG TAB PO SCH (18:37)
[2017-10-08 18:40] LABS: Protein, Urine 28.2 mg/dL (0.0-11.9)
[2017-10-08 22:00] VITALS: BP_SYST 132; BP_SYST 158; BP_DIAS 61; BP_DIAS 78
[2017-10-08] MEDS ORDERED: ZOLPIDEM TARTRATE 5 MG TAB PO ONE (22:00)
[2017-10-08] MEDS: ATORVASTATIN 20 MG TAB PO SCH (22:16)
[2017-10-08] MEDS: APIXABAN 5 MG TAB PO SCH (22:17)
[2017-10-08] MEDS: QUEtiapine FUMARATE 100 MG TAB PO SCH (22:30)
[2017-10-09 05:00] VITALS: BP 90/57
[2017-10-09] MEDS: SODIUM CHLOR 0.9% PF (SALINE LOCK) 10ML VIAL IV SCH ×2 (05:19→14:44)
[2017-10-09] MEDS: GABAPENTIN 100 MG CAP PO SCH ×2 (05:20→14:45)
[2017-10-09] MEDS: FUROSEMIDE 40 MG TAB PO SCH ×2 (05:21→18:00)
[2017-10-09] MEDS: InsuLIN REG 1unit/0.01ml Soln (100units/ml) SC SCH ×3 (05:25→18:00)
[2017-10-09] MEDS: ACCU-CHEK COMFORT CURVE STRIP VI SCH ×4 (05:48→18:00)
[2017-10-09 05:59] LABS: Basophils # (auto) 0.1 uL; Basophils % (auto) 0.7 % (0.0-2.0); Eosinophils # (auto) 0.2 uL; Eosinophils % (auto) 2.4 % (0.0-7.0); Hematocrit 28.5 % (41.0-53.0); Hemoglobin 9.3 g/dL (13.5-17.5); Lymphocytes # (auto) 1.9 uL; Lymphocytes % (auto) 26.4 % (10.0-50.0); Mean Corpuscular Hemoglobin 27.8 pg (28.0-32.0); Mean Corpuscular Hgb Conc. 32.7 g/dL (32.0-36.0); Mean Corpuscular Volume 85.2 fL (80.0-100.0); Monocytes # (auto) 0.8 uL; Monocytes % (auto) 11.2 % (0.0-12.0); Neutrophils # (auto) 4.2 uL; Neutrophils % (auto) 59.3 % (37.0-80.0); Platelet Count (auto) 266 10^3/uL (140-450); Red Blood Cells 3.34 10^6/uL (4.5-5.90); Red Cell Distribution Width 15.9 % (11.8-14.3); White Blood Cell 7.1 10^3/uL (4.4-10.8)
[2017-10-09 06:19] LABS: BUN/Creatinine Ratio 24.7; Calcium 8.6 mg/dL (8.5-10.1); Potassium 5.1 mmol/L (3.5-5.1)
[2017-10-09 06:22] LABS: Bilirubin, Total 0.2 mg/dL (0.2-1.0); Total Protein 6.6 g/dL (6.4-8.2)
[2017-10-09] MEDS: SEVELAMER 800 MG TAB PO SCH ×3 (08:15→18:00)
[2017-10-09 09:00] VITALS: BP 125/70
[2017-10-09] MEDS: ASPirin 81 mg TAB PO SCH (09:38)
[2017-10-09] MEDS: CYANOCOBALAMIN 500 MCG TAB PO SCH (09:38)
[2017-10-09] MEDS: APIXABAN 5 MG TAB PO SCH (09:38)
[2017-10-09] MEDS: SODIUM BICARBONATE 650 MG TAB PO SCH (09:39)
[2017-10-09] MEDS: METOPROLOL TARTRATE 25 MG TAB PO SCH (09:39)
[2017-10-09 13:00] VITALS: BP 110/65
[2017-10-09 14:04] VITALS: BP 110/65
[2017-10-09 17:08] VITALS: BP 105/78
== END 2017-10-09 19:20 | DRG 555 ==
LOC: ER 11:59 → EDBD 11:59 → TELE 12:00 → TELE-WESTW 10-07 12:30 → TELE 10-08 08:15 → TELE-WESTW 10-08 08:16
PROVIDERS: ADMIT Family Medicine; ATTEND Family Medicine
PROC: 4B02XSZ Measurement of Cardiac Pacemaker, External Approach (ICD-10-PCS; principal; 2017-10-06)
DX: M62.838 Other muscle spasm (principal); N17.0 Acute kidney failure with tubular necrosis; E87.2 Acidosis; N18.6 End stage renal disease; I13.11 Hypertensive heart and chronic kidney disease without heart failure, with stage 5 chronic kidney disease, or end stage renal disease; N25.81 Secondary hyperparathyroidism of renal origin; E11.22 Type 2 diabetes mellitus with diabetic chronic kidney disease; E11.42 Type 2 diabetes mellitus with diabetic polyneuropathy; W01.0XXA Fall on same level from slipping, tripping and stumbling without subsequent striking against object, initial encounter; E87.5 Hyperkalemia; E83.41 Hypermagnesemia; D64.9 Anemia, unspecified; E53.8 Deficiency of other specified B group vitamins; E78.5 Hyperlipidemia, unspecified; E87.8 Other disorders of electrolyte and fluid balance, not elsewhere classified; I25.10 Atherosclerotic heart disease of native coronary artery without angina pectoris; I25.5 Ischemic cardiomyopathy; I67.2 Cerebral atherosclerosis; M16.0 Bilateral primary osteoarthritis of hip; Z79.01 Long term (current) use of anticoagulants; Z79.82 Long term (current) use of aspirin; Z79.899 Other long term (current) drug therapy; S32.591D Other specified fracture of right pubis, subsequent encounter for fracture with routine healing; Z82.49 Family history of ischemic heart disease and other diseases of the circulatory system; Z83.3 Family history of diabetes mellitus; Z86.718 Personal history of other venous thrombosis and embolism; Z86.73 Personal history of transient ischemic attack (TIA), and cerebral infarction without residual deficits; Z87.81 Personal history of (healed) traumatic fracture; Z88.0 Allergy status to penicillin; Z91.81 History of falling; Z95.1 Presence of aortocoronary bypass graft; Z95.810 Presence of automatic (implantable) cardiac defibrillator
CPT/HCPCS: 36415; 71045; 72170; 76775; 78582; 80048; 80053; 80061; 81001; 82306; 82570; 82962; 83036; 83540; 83550; 83735; 83880; 83970; 84100; 84156; 84484; 85025; 85610; 85730; 87081; 93005; 96361; 96374; 96375; 97163; 99291; J0610; J1815